=== PATIENT | male | born 1965 | race Two or more races ===

== ENCOUNTER 2017-08-04 10:21 | Emergency (ER) | payer OTHER ==
[~2017-08-04] VITALS: Ht 160 cm; Wt 65.8 kg
[2017-08-04 10:26] VITALS: BP 132/71
[2017-08-04] MEDS ORDERED: ACETAMINOPHEN ES 500 MG TABLET ONE (10:42)
[2017-08-04] MEDS ORDERED: ACETAMINOPHEN ES 500 MG TABLET PO ONE (11:00)
== END 2017-08-04 11:21 | disposition home or self-care (01) ==
LOC: ER 10:23
DX: M25.561 Pain in right knee (principal); J45.909 Unspecified asthma, uncomplicated
CPT/HCPCS: 73560-TC; A4606; Z7610